=== PATIENT | female | born 1955 | race Two or more races ===

== ENCOUNTER 2024-03-07 18:25 | Emergency (ER) | payer MEDICAID, SELFPAY ==
[2024-03-07 19:08] VITALS: BP 127/78; PULSE 100; RESP 18; TEMP 37.3; O2SAT 97; BMI 29.0
--- NOTE | 2024-03-07 19:19 | XR_ITS ---
Examination: PA lateral chest 2 views Technique: Upright PA lateral chest 2 views Exam date and time: March 07, 2024 1944 hrs. Indications: Coughing beginning 4 days ago. Findings: Normal heart size No pneumonia or pulmonary edema 4 mm pulmonary nodule left upper lobe Impression: No pneumonia or pulmonary edema Recommend 3 month follow-up PA lateral chest to document stability of small pulmonary nodule left upper lobe
--- NOTE | 2024-03-07 19:20 | EDNOTE_ITS ---
<Statement entered by Angela Branch MD - 03/07/24 22:03> As co-signing physician, I was present and available for consult prn. I concur with the plan and care as documented by the midlevel provider. Upper Respiratory Inf. RME/HPI General Chief Complaint: Flu Like Symptoms Stated Complaint: COUGH, SORE THROAT, SOB; HX ASTHMA Time Seen by Provider: 03/07/24 19:04 Arrival date/time: 03/07/24 18:25 68-year-old female with h/o asthma reports with complaints of cough congestion sore throat shortness of breath for several days. Patient was seen this morning by urgent care prescribed azithromycin cough suppressants and Tylenol. Patient states that she has been taking the medicine since this morning with no improvement of symptoms. She denies chest pain dizziness fevers chills nausea or vomiting or abdominal pain Limitations: no limitations Related Data Previous Rx's ?Medication ?Instructions ?Recorded albuterol sulfate 90 mcg/actuation 2 puff inhalation QID #18 grams 09/27/19 aerosol inhaler oseltamivir 75 mg capsule (Tamiflu) 75 mg PO BID 5 days #10 caps 03/07/24 Allergies Allergy/AdvReac Type Severity Reaction Status Date / Time No Known Allergies Allergy Verified 03/07/24 18:27 Review of Systems Constitutional Constitutional: Denies chills and Denies fever(s) ENT Ears, Nose, Mouth, and Throat: Reports sore throat and Denies throat swelling Cardiovascular Cardiovascular: Denies chest pain and Denies dyspnea Respiratory Respiratory: Reports cough and Denies dyspnea Gastrointestinal Gastrointestinal: Denies nausea and Denies vomiting Allergic/Immunologic Allergic/Immunologic: Denies throat swelling Past Medical History Social History SMOKING STATUS: Never smoker ED Exam General Limitations: Present no limitations General appearance: Present alert and in no apparent distress Head Head exam: Present atraumatic Eye Eye exam: Present normal appearance, PERRL and EOMI ENT ENT exam: Present normal exam, normal oropharynx and mucous membranes moist Neck Neck exam: Present normal inspection, full ROM and trachea midline Chest Chest inspection: Present normal inspection and symmetric chest wall rise Respiratory Respiratory exam: Present normal lung sounds bilaterally Cardiovascular Cardiovascular exam: Present regular rate, normal rhythm and normal heart sounds Abdominal Exam Abdominal exam: Present soft and normal bowel sounds Extremities Exam Extremities exam: Present normal inspection and full ROM Back Exam Back exam: Present normal inspection and full ROM Neurological Exam Neurological exam: Present alert, oriented X3 and CN II-XII intact Psychiatric Psychiatric exam: Present normal affect and normal mood Skin Skin exam: Present warm, dry, intact and normal color Course Quality Measures none Orders Category Date Time Status Bedside COVID-19 Antigen Test NOW Care 03/07/24 19:23 Active Bedside Influenza A&B Antigen Test NOW Care 03/07/24 19:24 Completed XR chest 2V Stat Exams 03/07/24 19:19 Taken Vital Signs Vital signs: Vital Signs Temperature 99.1 F 03/07/24 19:08 Pulse Rate 100 03/07/24 19:08 Respiratory Rate 18 03/07/24 19:08 Blood Pressure 127/78 03/07/24 19:08 Pulse Oximetry (%) 97 03/07/24 19:08 Oxygen Delivery Method Room Air 03/07/24 19:08 Upper Respiratory Infection Patient data External records reviewed:: None Clinical information provided by:: patient Social determinants that could affect healthcare access:: none Patient has the following chronic illnesses:: NONE How is presenting disease/condition affected by chronic disease/condition?: no chronic disease Evaluation data The following diagnostics were reviewed and interpreted by me:: lab results Lab and/or radiology exams considered but not ordered:: NONE Interpretation Summary: FLU B Medications / Prescriptions Medications or Prescriptions considered but not ordered:: NONE Medication administrations:: NONE Consultations Consultation(s) initiated? (list below): No Diagnosis Upper Respiratory Differential Diagnosis: upper respiratory infection, viral infection and influenza Most likely diagnosis given after review of the tests above:: Influenza B Admission Indicated Admission indicated?: not indicated Admission Request Was there a request for admission?: No Disposition Plan Disposition Plan: Discharge Discharge Attestation Discharge Attestation: The patient and all family members were given an opportunity to ask questions and understood the discharge instructions. Discharge instructions specifically effects, indications for sooner follow up or return to the emergency department, and the expected course of current diagnosis. Patient condition: Stable Discharge Plan Plan Patient Disposition: HOME (Self Care) Prescriptions/Referrals Prescriptions/Med Rec: New oseltamivir [Tamiflu] 75 mg capsule 75 mg PO BID 5 Days Qty: 10 0RF No Action albuterol sulfate 90 mcg/actuation HFA aerosol inhaler 2 puff IH QID Qty: 18 0RF Referrals: Heaven Hdz FNP ([facility]) [Primary Care Provider] - In 1 week Problem List Clinical Impression: Influenza B Patient/Caregiver Discharge Instructions Discharge Activity: activity as tolerated Education Materials: ED Influenza (Adult) Additional Instructions: Discontinue the antibiotics only take the cough medicine you may use the rescue inhaler as needed and the Tamiflu as needed follow-up with your primary care provider if no improvement in 5 days or return to the emergency department if symptoms should worsen Print Language: [place] Stand Alone Forms: Rosana Award Info., Patient Portal Info Letter
[2024-03-07 21:07] VITALS: RESP 18
== END 2024-03-07 21:08 | disposition home or self-care (01) ==
PROVIDERS: Emergency Provider Emergency Medicine; PCP Nurse Practitioner Primary Care
DX: J10.1 Influenza due to other identified influenza virus with other respiratory manifestations (principal)
CPT/HCPCS: 71046; 87400; 87811; 99283